=== PATIENT | female | born 1940 | race Caucasian/White ===

== ENCOUNTER 2018-01-20 11:07 | Inpatient (IN) | payer MEDICARE, OTHER ==
[2018-01-20] MEDS ORDERED: Ondansetron PF 4 MG/2 ML Vial ONE (12:08)
[2018-01-20 12:50] LABS: #Basophils 0.1 thou/uL (0.0-0.2); #Lymphocytes 0.7 thou/uL (1.20-3.40); #Monocytes 0.7 thou/uL (0.11-0.59); #Neutrophils 14.2 thou/uL (1.40-6.50); %Basophils 0.4 % (0.0-1.0); %Lymphocytes 4.6 % (21.0-51.0); %Monocytes 4.5 % (0.0-10.0); %Neutrophils 90.5 % (42.0-75.0); Hemoglobin 15.4 g/dL (12.0-16.0); Mean Corpuscular HGB CONC 33.4 g/dL (32.0-36.0); Mean Corpuscular Hemoglobin 29.8 pg (27.0-31.0); Mean Corpuscular Volume 89.2 fL (78.0-98.0); Mean Platelet Volume 8.9 fL (7.4-10.4); PLT Morphology Comment Appears Decreased; Platelet Count 117 thou/uL (130-400); RBC Distribution Width 13.1 % (11.5-14.5); RBC Morphology Normal; Red Blood Cell (RBC) Count 5.17 mill/uL (4.20-5.40); White Blood Cell (WBC) Count 15.7 thou/uL (4.8-10.8)
[2018-01-20 12:53] LABS: MDiff Complete? YES
[2018-01-20 12:55] LABS: Troponin I 0.093 ng/mL (< 0.028)
[2018-01-20 12:58] LABS: CKMB 113.5 ng/mL (0-6.6)
--- NOTE | 2018-01-20 13:04 | CT ---
CT BRAIN NONCONTRAST: HISTORY: A 77-year-old female status post head trauma from fall and dysarthria. FINDINGS: There is no midline shift or any other mass effect. There is no evidence of acute intracranial hemor rhage, large cortical infarct, obstructive hydrocephalus, or extraaxial fluid collection. The calvar ium is intact. There is diffuse parenchymal volume loss. There are low attenuation areas in the whi te matter. These are nonspecific, but in a patient of this age, they are probably chronic ischemic w debbie matter changes due to microvascular atherosclerosis. IMPRESSION: 1) No acute intracranial findings. 2) Involutional changes and chronic ischemic white matter changes. jn [] POS: [facility]
[2018-01-20 13:05] LABS: ALT (SGPT) 71 U/L (8-55); AST (SGOT) 160 U/L (5-34); Albumin 4.4 g/dL (3.4-4.8); Alkaline Phosphatase 62 U/L (40-150); Anion Gap 19 mmol/L (10-20); BUN (Urea Nitrogen) 29 mg/dL (9.8-20.1); Bilirubin, Total 2.1 mg/dL (0.2-1.2); CK (CPK) 5367 U/L (29-168); Calc. Creatinine Clearance 0 mL/min (70-130); Calcium 9.8 mg/dL (7.8-10.44); Carbon Dioxide 21 mmol/L (23-31); Chloride 100 mmol/L (98-107); Estimated GFR-MDRD 45; Globulin 2.9 g/dL (2.4-3.5); Glucose 117 mg/dL (83-110); Potassium 3.2 mmol/L (3.5-5.1); Protein, Total 7.3 g/dL (6.0-8.3); Sodium 137 mmol/L (136-145)
--- NOTE | 2018-01-20 13:16 | CT ---
CT CERVICAL SPINE NONCONTRAST: HISTORY: A 77-year-old female status post cervical trauma from fall. FINDINGS: There are no jumped or perched facets. There is no evidence of acute fracture. The vertebral body h eights are maintained. There is no prevertebral soft tissue swelling. IMPRESSION: No evidence of acute fracture or acute traumatic subluxation. kelby [] POS: [facility]
--- NOTE | 2018-01-20 13:18 | RAD ---
RADIOGRAPH RIGHT HUMERUS TWO VIEWS: 01/20/2018 12:53 p.m. HISTORY: A 77-year-old female with acute traumatic right arm pain from fall. FINDINGS: There is a comminuted fracture of the humeral head, also with a fracture component at the surgical ne ck of the humerus, where there is anterior angulation of the fracture apex. There is no dislocation of the glenohumeral joint. The humeral diaphysis is intact. IMPRESSION: Acute, traumatic, comminuted, displaced, right humeral head fracture. POS: [facility]
[2018-01-20 14:38] LABS: Bilirubin Negative (Negative); Blood, Urine Large (Negative); Glucose, Urine (Dipstick) Negative (Negative); Leukocyte Negative (Negative); Nitrite Negative (Negative); Protein, Urine (Dipstick) 100 mg/dL (Neg-Trace); Specific Gravity, Urine 1.025 (1.005-1.030); Urobilinogen 0.2 mg/dL (0.2-1.0); pH, Urine 6.5 (5.0-9.0)
[2018-01-20 14:39] LABS: Clarity Hazy (Clear)
[2018-01-20 14:54] LABS: Bacteria/HPF Rare-Few HPF (None Seen); Squamous Epithelial 0-3 HPF (0-3); WBC/HPF None Seen HPF (0-3)
[2018-01-20 16:59] VITALS: BMI 27.7
[2018-01-20] MEDS ORDERED: Ondansetron ODT 4 MG TAB SL PRN (17:48)
[2018-01-20] MEDS ORDERED: HYDROcodone/Acetaminophen 5/325 mg Tablet PO PRN ×2 (17:48)
[2018-01-20] MEDS ORDERED: Ondansetron PF 4 MG/2 ML Vial IVP PRN (17:48)
[2018-01-20] MEDS ORDERED: Sodium Chloride 0.9% 1,000 ML IV SCH (18:00)
[2018-01-20] MEDS ORDERED: Prevnar 13-Val Conj/PF 0.5 ML SYRINGE IM ONE (18:30)
[2018-01-20] MEDS ORDERED: Senokot S 8.6-50 MG TAB PO PRN (22:27)
[2018-01-20] MEDS ORDERED: Potassium Chloride 20 MEQ TAB PO SCH (22:30)
[2018-01-21] MEDS ORDERED: Potassium Chloride 20 MEQ TAB ONE (00:06)
[2018-01-21] MEDS: Sodium Chloride 0.9% 1,000 ML IV SCH ×5 (00:09→22:17)
--- NOTE | 2018-01-21 03:48 | HP ---
CHIEF COMPLAINT: Status post fall. HISTORY OF PRESENT ILLNESS: This is a 77-year-old female with a past medical history of rheumatoid a rthritis, presenting with status post mechanical fall. She was going to get her mails and the patien t lost her balance and she fell. The patient states that she did not fall and hit her head or she di d not lose any consciousness. She stated that she just fell. She just fell on her right side and sh e laid down and started yelling, but nobody could hear her. The patient states that she had to lay o n the ground for the whole night until the next morning when the neighbors heard her yell and they ca me and helped her. Per the patient, the neighbors helped into her house and called the patient's fam una. The patient was then brought our ED to be evaluated. The patient endorses right shoulder pain. Otherwise, the patient denies loss of consciousness, headaches, weakness, numbness, chest pain, pal pitations, abdominal pain. REVIEW OF SYSTEMS: Positive for right shoulder and upper arm pain, bruising of the right knee, poste rior left upper arm and left knee. Otherwise, as documented in the HPI. All other systems were revi ewed and are negative. PAST MEDICAL HISTORY: Rheumatoid arthritis. FAMILY HISTORY: Reviewed and noncontributory to this visit. PAST SURGICAL HISTORY: Right hip surgery. PSYCHIATRIC HISTORY: No psych history. SOCIAL HISTORY: The patient denies any illicit drug use and denies any smoking history. The patient drinks occasionally. ALLERGIES: The patient has no known drug allergies. CURRENT MEDICATION: The patient takes folic acid, Humira and methotrexate sodium. PHYSICAL EXAMINATION: VITAL SIGNS: The patient's blood pressure is 174/107, pulse of 102, respiratory rate of 18, O2 sat o f 94 on room air. GENERAL: The patient is lying in bed, has right arm in a sling. The patient is not in any acute dis tress. The patient is speaking in full sentences. HEENT: Normocephalic, atraumatic. Pupils are equal, round and reactive to light. Extraocular movem ents are intact. No scleral icterus. No conjunctival pallor noted. No trauma noted at the head. M ucous membranes are moist. There is a superficial abrasion on the bridge of the nose noted. NECK: No JVD. Trachea is midline. Supple. LUNGS: Clear to auscultation bilaterally. No wheezing, no rales, no rhonchi is appreciated. CARDIOVASCULAR: S1, S2. Regular rate and rhythm. No murmurs, no gallops, no rubs appreciated. ABDOMEN: Soft, nontender, nondistended, obese abdomen. PELVIS: No tenderness, bilateral iliac pressure over the pubis symphysis. There is no pelvic trauma . BACK: There is no tenderness on palpation of the entire spine. EXTREMITIES: The patient has ecchymosis and some contusion noted in the posterior aspect of the left upper arm and right arm has limited range of motion and is in a sling. Lower extremities, the patie nt has some ecchymosis noted at the anterior knees bilaterally. There is no edema noted. The patien t has good strength of the lower extremities bilaterally. NEUROLOGIC: Cranial nerves II-XII grossly intact. No neurologic deficits noted. SKIN: Kindly refer to the description that has been done at the nose, upper and lower extremities. EKG shows sinus tachycardia. IMAGIN. CT of the brain shows no acute intracranial findings. 2. Humerus x-ray shows acute traumatic, comminuted right humeral head fracture. 3. Cervical spine CT shows no evidence of acute fracture or acute traumatic subluxation. ASSESSMENT AND PLAN: 1. This is a 77-year-old female with a history of rheumatoid arthritis, being admitted for status po st mechanical fall. At this point, the patient has her right shoulder in a sling and the patient is lying in bed at this time. We will continue the patient on p.r.n. pain medications. We will continu e to monitor the patient very closely. 2. Rhabdomyolysis. The patient's CPK was elevated at 5357. We will continue the patient on IV hydr ation. I will monitor the patient closely. We will follow up on morning labs. 3. Acute kidney injury. We will continue the patient on IV hydration. We will follow up on morning labs. 4. Hypokalemia. We will replete the patient's potassium. 5. Leukocytosis, most likely reactive. We will follow up on morning labs.
[2018-01-21 04:57] LABS: Albumin 3.2 g/dL (3.4-4.8); Anion Gap 12 mmol/L (10-20); BUN (Urea Nitrogen) 31 mg/dL (9.8-20.1); BUN/Creatinine Ratio 29.52; Calc. Creatinine Clearance 51 mL/min (70-130); Calcium 8.5 mg/dL (7.8-10.44); Carbon Dioxide 20 mmol/L (23-31); Chloride 108 mmol/L (98-107); Estimated GFR-MDRD 51; Glucose 98 mg/dL (83-110); Phosphorus 3.8 mg/dL (2.3-4.7); Potassium 3.8 mmol/L (3.5-5.1); Sodium 136 mmol/L (136-145)
[2018-01-21 05:07] LABS: #Basophils 0.1 thou/uL (0.0-0.2); #Monocytes 0.7 thou/uL (0.11-0.59); #Neutrophils 10.5 thou/uL (1.40-6.50); %Basophils 0.4 % (0.0-1.0); %Eosinophils 0.3 % (0.0-10.0); %Lymphocytes 7.9 % (21.0-51.0); %Monocytes 5.6 % (0.0-10.0); %Neutrophils 85.7 % (42.0-75.0); Hemoglobin 12.4 g/dL (12.0-16.0); Mean Corpuscular HGB CONC 33.9 g/dL (32.0-36.0); Mean Corpuscular Volume 94.3 fL (78.0-98.0); Mean Platelet Volume 8.1 fL (7.4-10.4); Platelet Count 119 thou/uL (130-400); Red Blood Cell (RBC) Count 3.89 mill/uL (4.20-5.40); White Blood Cell (WBC) Count 12.3 thou/uL (4.8-10.8)
[2018-01-21] MEDS: Enoxaparin Sodium 40 MG/0.4 ML SYRINGE SC SCH (07:41)
[2018-01-21] MEDS: Famotidine 20 MG TAB PO SCH (07:41)
[2018-01-21] MEDS: Famotidine/PF 20 mg/2ml Vial SLOW IVP SCH (07:42)
[2018-01-21] MEDS ORDERED: Adalimumab 40 MG/0.8 ML SYRINGE SC SCH (09:00)
[2018-01-21] MEDS ORDERED: Methotrexate Sodium 2.5 MG TAB PO SCH (09:00)
[2018-01-21] MEDS ORDERED: Famotidine 20 MG TAB PO SCH (09:00)
[2018-01-21] MEDS ORDERED: Famotidine/PF 20 mg/2ml Vial SLOW IVP SCH (09:00)
[2018-01-21] MEDS ORDERED: Acetaminophen 500 MG TAB PO PRN (11:52)
[2018-01-21] MEDS: traMADol HCl 50 MG TAB PO PRN (12:23)
--- NOTE | 2018-01-21 12:24 | PDOC.PN ---
- Subjective Encounter Start Date: 01/21/18 Encounter Start Time: 12:10 Subjective: f/u for fall with prolonged exposure outside sustaining R humerus fx. -: Family reporting ? slurred speech. Family denying any new complaints. - Objective Resuscitation Status: Resuscitation Status FULL:Full Resuscitation MAR Reviewed: Yes Vital Signs & Weight: Vital Signs (12 hours) Temp Pulse Resp BP Pulse Ox 01/21/18 11:15 98.0 F 100 20 125/77 94 L 01/21/18 08:00 97 01/21/18 04:00 98 F 89 16 124/78 Weight Weight 156 lb 8.451 oz I&O: 01/20/18 01/21/18 01/22/18 06:59 06:59 06:59 Intake Total 2520 360 Balance 2520 360 Result Diagrams: 01/21/18 03:47 01/21/18 03:47 Additional Labs: Laboratory Tests 01/20/18 01/20/18 01/20/18 12:20 12:20 12:20 WBC 15.7 H Potassium 3.2 L Creatinine 1.17 H AST 160 H ALT 71 H Creatine Kinase 5367 H Troponin I 0.093 H Radiology Reviewed by me: Yes (CT brain - negative) Phys Exam - Physical Examination Constitutional: NAD alert, talkative HEENT: PERRLA, sclera anicteric, oral pharynx no lesions Neck: no nodes, no JVD, supple, full ROM Respiratory: no wheezing, no rales, no rhonchi, clear to auscultation bilateral S1, S2 Cardiovascular: RRR, no significant murmur, no rub, gallop Gastrointestinal: soft, non-tender, no distention, positive bowel sounds LUE with ecchymosis, + TTP of R humerus Musculoskeletal: pulses present Neurological: normal sensation, moves all 4 limbs Psychiatric: A&O x 3 Skin: normal turgor, cap refill <2 seconds Dx/Plan (1) Comminuted right humeral fracture Code(s): S42.351A - DISPLACED COMMINUTED FX SHAFT OF HUMERUS, RIGHT ARM, INIT Status: Acute Comment: Consult Ortho service, Arm sling, pain control, PT for mobilization (2) Traumatic rhabdomyolysis Code(s): T79.6XXA - TRAUMATIC ISCHEMIA OF MUSCLE, INITIAL ENCOUNTER Status: Acute Comment: Secondary to fall and prolonged environmental exposure, continue to encourage increased free-H2O, repeat CPK in am (3) SAMANTA (acute kidney injury) Code(s): N17.9 - ACUTE KIDNEY FAILURE, UNSPECIFIED Status: Acute Comment: Improved, IVF's, avoid nephrotoxic meds and limit contrast exposure (4) Transaminitis Code(s): R74.0 - NONSPEC ELEV OF LEVELS OF TRANSAMNS & LACTIC ACID DEHYDRGNSE Status: Acute Comment: Mild, serial monitoring (5) Dysarthria Code(s): R47.1 - DYSARTHRIA AND ANARTHRIA Status: Acute Comment: ? time course, check MRI brain and carotid doppler study - Plan plan discussed w/ family, PT/OT, social services manager, out of bed/ambulate, DVT proph w/SCDs Stable overall -: Continue IVF's -: MRI brain and Carotid doppler -: PT for mobilization -: AM lab: CMP, CBC, CPK * .
--- NOTE | 2018-01-21 16:00 | ULT ---
CAROTID ULTRASOUND: 01/21/18 HISTORY: Syncope and fall. COMPARISON: None. TECHNIQUE: Constantino scale, color flow, doppler imaging with spectral waveform analysis performed in the carotid vert ebral arteries. FINDINGS: RIGHT CAROTID: No significant atherosclerotic disease. Peak systolic velocity of the common carotid is 141.3 cm/s. P eak systolic velocity of the internal carotid artery is 74.1 cm/s. Systolic ICA to CCA ratio is 0.52. LEFT CAROTID: No significant atherosclerotic disease. Peak systolic velocity of the common carotid is 56.3 cm/s. Pe ak systolic velocity of the internal carotid artery is 103.4 cm/s. Systolic ICA to CCA ratio is 0.66. Antegrade flow in both vertebral arteries. IMPRESSION: No sonographic evidence of hemodynamically significant stenosis. POS: [facility]
--- NOTE | 2018-01-21 19:07 | MRI ---
MRI BRAIN WITH AND WITHOUT CONTRAST: 01/21/18 INDICATION: History of fall. Dysarthria. FINDINGS: There is severe ischemic disease of the cerebral white matter and in the brain stem. Multifocal punct ate susceptibility foci of the brain parenchyma are present. Marked distortion of DWI imaging limits evaluation, although there are multifocal punctate areas of restricted diffusion. No pathologic intra -axial enhancement visualized. Chronic lacunar infarctions of each cerebellar hemisphere are present. There is mild global atrophy. The imaged skull base flow voids are patent. Mild left mastoid fluid i s present. IMPRESSION: Severe microvascular ischemic disease. There are superimposed multifocal punctate susceptibility foci as well as punctate areas of restricted diffusion to indicate small areas of multifocal recent ische adama. These findings may relate to different stages of microvascular ischemic disease and likely a sup erimposed amyloid angiopathy. There is no mass producing, pathologic intra-axial enhancement. POS: [facility]
[2018-01-22] MEDS: Sodium Chloride 0.9% 1,000 ML IV SCH ×3 (05:01→22:30)
[2018-01-22 06:39] LABS: ALT (SGPT) 53 U/L (8-55); AST (SGOT) 102 U/L (5-34); Albumin 2.9 g/dL (3.4-4.8); Alkaline Phosphatase 46 U/L (40-150); Anion Gap 11 mmol/L (10-20); BUN (Urea Nitrogen) 16 mg/dL (9.8-20.1); Bilirubin, Total 0.7 mg/dL (0.2-1.2); CK (CPK) 995 U/L (29-168); Calc. Creatinine Clearance 87 mL/min (70-130); Calcium 8.3 mg/dL (7.8-10.44); Carbon Dioxide 18 mmol/L (23-31); Chloride 115 mmol/L (98-107); Estimated GFR-MDRD Greater than 90; Globulin 2.4 g/dL (2.4-3.5); Glucose 89 mg/dL (83-110); Potassium 3.6 mmol/L (3.5-5.1); Protein, Total 5.3 g/dL (6.0-8.3); Sodium 140 mmol/L (136-145)
[2018-01-22 06:59] LABS: Band 2 % (5-11); Hemoglobin 12.2 g/dL (12.0-16.0); Lymphocytes 10 % (21-51); MDiff Complete? YES; Mean Corpuscular HGB CONC 32.5 g/dL (32.0-36.0); Mean Corpuscular Hemoglobin 31.8 pg (27.0-31.0); Mean Corpuscular Volume 97.8 fL (78.0-98.0); Mean Platelet Volume 7.9 fL (7.4-10.4); Monocytes 6 % (0-10); Neutrophil 82 % (42-75); PLT Morphology Comment Appears Decreased; Platelet Count 125 thou/uL (130-400); RBC Distribution Width 14.1 % (11.5-14.5); RBC Morphology Normal; Red Blood Cell (RBC) Count 3.85 mill/uL (4.20-5.40); White Blood Cell (WBC) Count 5.8 thou/uL (4.8-10.8)
[2018-01-22] MEDS ORDERED: Enoxaparin Sodium 40 MG/0.4 ML SYRINGE ONE (07:58)
[2018-01-22] MEDS: traMADol HCl 50 MG TAB PO PRN ×3 (08:38→20:12)
[2018-01-22] MEDS: Famotidine 20 MG TAB PO SCH (08:39)
[2018-01-22] MEDS: Enoxaparin Sodium 40 MG/0.4 ML SYRINGE SC SCH (08:39)
[2018-01-22] MEDS: Famotidine/PF 20 mg/2ml Vial SLOW IVP SCH (08:40)
--- NOTE | 2018-01-22 14:04 | PDOC.PN ---
- Subjective Encounter Start Date: 01/22/18 Encounter Start Time: 10:20 Pt seen for followup re: ischemic CVA. Denies chest pain, shortness of breath, fevers or chills. - Objective Resuscitation Status: Resuscitation Status FULL:Full Resuscitation MAR Reviewed: Yes Vital Signs & Weight: Vital Signs (12 hours) Temp Pulse Resp BP Pulse Ox 01/22/18 08:00 98.5 F 89 16 162/85 H 95 Weight Weight 156 lb 8.451 oz I&O: 01/21/18 01/22/18 01/23/18 06:59 06:59 06:59 Intake Total 2520 2840 Output Total 2100 Balance 2520 740 Result Diagrams: 01/22/18 06:10 01/22/18 06:10 Additional Labs: labs reviewed by me Phys Exam - Physical Examination Constitutional: NAD HEENT: moist MMs, sclera anicteric, oral pharynx no lesions, 2+ tonsils Neck: no nodes, no JVD, supple, full ROM Respiratory: no wheezing, no rales, no rhonchi, clear to auscultation bilateral Cardiovascular: RRR, no rub S1, S2 Gastrointestinal: soft, non-tender, no distention, positive bowel sounds right shoulder sling Neurological: moves all 4 limbs Psychiatric: normal affect, A&O x 3 Dx/Plan (1) Ischemic cerebrovascular accident (CVA) Code(s): I63.9 - CEREBRAL INFARCTION, UNSPECIFIED Status: Acute (2) SAMANTA (acute kidney injury) Code(s): N17.9 - ACUTE KIDNEY FAILURE, UNSPECIFIED Status: Acute Comment: Improved, IVF's, avoid nephrotoxic meds and limit contrast exposure (3) Comminuted right humeral fracture Code(s): S42.351A - DISPLACED COMMINUTED FX SHAFT OF HUMERUS, RIGHT ARM, INIT Status: Acute Comment: Arm sling, pain control, PT for mobilization (4) Traumatic rhabdomyolysis Code(s): T79.6XXA - TRAUMATIC ISCHEMIA OF MUSCLE, INITIAL ENCOUNTER Status: Acute Comment: Improving, repeat CPK in am - Plan * . Review of Systems - Review of Systems Constitutional: negative: fever, chills, sweats, weakness, malaise Respiratory: Hemoptysis. negative: Cough, Shortness of Breath, SOB with Excertion, Pleuritic Pain, Wheezing Cardiovascular: negative: chest pain, palpitations, orthopnea, paroxysmal nocturnal dyspnea, edema, light headedness Musculoskeletal: Shoulder Pain. negative: Neck Pain, Arm Pain, Back Pain, Hand Pain, Leg Pain, Foot Pain Skin: Bruising. negative: Rash, Lesions, Lauri - Medications/Allergies Allergies/Adverse Reactions: Allergies Allergy/AdvReac Type Severity Reaction Status Date / Time No Known Allergies Allergy Unverified 01/20/18 16:58 Medications: Current Medications Acetaminophen (Tylenol) 1,000 mg PO Q6H PRN PRN Reason: Moderate to Severe Pain (6-10) Adalimumab (Humira) 20 mg SC Q7D [facility] Last Admin: 01/21/18 10:20 Dose: Not Given Enoxaparin Sodium (Lovenox) 40 mg SC 0900 [facility] Last Admin: 01/22/18 08:39 Dose: 40 mg Famotidine (Pepcid) 20 mg PO QAM [facility] Last Admin: 01/22/18 08:39 Dose: 20 mg Sodium Chloride (Normal Saline 0.9%) 1,000 mls @ 150 mls/hr IV .Q6H40M [facility] Last Admin: 01/22/18 14:00 Dose: 1,000 mls Methotrexate Sodium (Methotrexate Sodium) 10 mg PO Q7D [facility] Last Admin: 01/21/18 11:07 Dose: 10 mg Senna/Docusate Sodium (Senokot S) 2 tab PO BID PRN PRN Reason: Constipation Sodium Chloride (Flush - Normal Saline) 10 ml IVF Q12HR PRN PRN Reason: Saline Flush Sodium Chloride (Flush - Normal Saline) 10 ml IVF PRN PRN PRN Reason: Saline Flush Tramadol HCl (Ultram) 50 mg PO Q6H PRN PRN Reason: Moderate Pain (4-6) Last Admin: 01/22/18 13:57 Dose: 50 mg
--- NOTE | 2018-01-22 14:13 | PRG ---
DATE OF SERVICE: 01/22/2018 CHIEF COMPLAINT: Right proximal humerus fracture. HISTORY OF PRESENT ILLNESS: Ms. Pena is a pleasant 77-year-old female, who was found down after a fall exposure outside, history of RA, patient has rhabdo , is currently being treated for her deconditioning. The patient is resting comfortably in bed in a sling. Her pain is controlled. She has ambulated with physical therapy. PHYSICAL EXAMINATION: VITAL SIGNS: The patient's vitals 98.5, 89, 16, 95, 162/85. GENERAL: The patient is in general alert and oriented female in no acute distress. EXTREMITIES: Right upper extremity, brisk cap refill, palpable. She is able to flex and extend her fingers, wrist, and hand. Motor intact. IMPRESSION: The patient has a right proximal humerus fracture with probably intraarticular extension. ASSESSMENT AND PLAN: The patient will remain in a sling for 2 weeks, perform elbow, wrist, and hand motion. She will likely need either Home Health or since she lives alone to go home with family versus to skilled rehab versus SNF , so the patient is continued through care. I will see her back in 2 weeks and re-x-ray her. I discussed that she potentially could still undergo a reversal arthroplasty in the future as a delayed procedure. We will allow her to get over this acute medical event and we will discuss this in the future. ROGER
[2018-01-22] MEDS ORDERED: Aspirin 325 mg Enteric Coated Tablet PO SCH (16:45)
[2018-01-22] MEDS: Atorvastatin Calcium 20 MG TAB PO SCH (20:13)
[2018-01-22] MEDS ORDERED: Prevnar 13-Val Conj/PF 0.5 ML SYRINGE IM ONE (21:00)
[2018-01-23] MEDS: traMADol HCl 50 MG TAB PO PRN ×2 (04:17→16:44)
[2018-01-23 05:38] LABS: ALT (SGPT) 52 U/L (8-55); AST (SGOT) 81 U/L (5-34); Albumin 2.9 g/dL (3.4-4.8); Alkaline Phosphatase 43 U/L (40-150); Anion Gap 10 mmol/L (10-20); BUN (Urea Nitrogen) 9 mg/dL (9.8-20.1); CK (CPK) 583 U/L (29-168); Calc. Creatinine Clearance 98 mL/min (70-130); Carbon Dioxide 23 mmol/L (23-31); Cardiac Risk 4.6 (Less than 4.5); Chloride 109 mmol/L (98-107); Cholesterol 146 mg/dl (< 200 Desired); Estimated GFR-MDRD Greater than 90; Globulin 2.2 g/dL (2.4-3.5); Glucose 95 mg/dL (83-110); HDL Cholesterol 32 mg/dL (>60 Neg Risk); LDL Cholesterol, Calculated 89 mg/dL; Protein, Total 5.1 g/dL (6.0-8.3); Sodium 139 mmol/L (136-145); Triglycerides 123 mg/dL (Less than 150)
[2018-01-23 05:39] LABS: #Eosinphils 0.1 thou/uL (0.0-0.7); #Lymphocytes 0.8 thou/uL (1.20-3.40); #Monocytes 0.2 thou/uL (0.11-0.59); #Neutrophils 4.4 thou/uL (1.40-6.50); %Basophils 0.5 % (0.0-1.0); %Eosinophils 2.2 % (0.0-10.0); %Lymphocytes 14.6 % (21.0-51.0); %Monocytes 3.8 % (0.0-10.0); %Neutrophils 78.9 % (42.0-75.0); Hemoglobin 11.7 g/dL (12.0-16.0); Mean Corpuscular HGB CONC 33.6 g/dL (32.0-36.0); Mean Corpuscular Hemoglobin 31.5 pg (27.0-31.0); Mean Platelet Volume 7.8 fL (7.4-10.4); Platelet Count 124 thou/uL (130-400); RBC Distribution Width 13.5 % (11.5-14.5); White Blood Cell (WBC) Count 5.5 thou/uL (4.8-10.8)
[2018-01-23 05:41] LABS: Potassium 2.9 mmol/L (3.5-5.1)
[2018-01-23] MEDS: Sodium Chloride 0.9% 1,000 ML IV SCH ×4 (06:00→23:12)
[2018-01-23] MEDS ORDERED: Potassium Chloride 10 MEQ in Premix Bag 1 BAG IVPB SCH (06:15)
[2018-01-23] MEDS: Potassium Chloride 10 MEQ in Premix Bag 1 BAG IVPB SCH ×3 (06:26→14:02)
[2018-01-23] MEDS ORDERED: hydrALAZINE 20 MG/ML VIAL SLOW IVP SCH (08:45)
[2018-01-23] MEDS: Famotidine 20 MG TAB PO SCH (10:30)
[2018-01-23] MEDS: Aspirin 325 mg Enteric Coated Tablet PO SCH (10:30)
--- NOTE | 2018-01-23 12:16 | PDOC.PN ---
- Subjective Encounter Start Date: 01/23/18 Encounter Start Time: 07:00 Pt seen for followup re: ischemic CVA. Denies chest pain, shortness of breath, fevers or chills. - Objective Resuscitation Status: Resuscitation Status FULL:Full Resuscitation MAR Reviewed: Yes Vital Signs & Weight: Vital Signs (12 hours) Temp Pulse Resp BP BP Pulse Ox 01/23/18 11:48 98.4 F 85 18 179/108 H 95 01/23/18 10:23 87 205/126 H 01/23/18 08:55 96 01/23/18 07:55 98.1 F 87 16 192/122 H 96 01/23/18 03:25 98.3 F 84 12 169/101 H 97 01/23/18 00:17 98.0 F 92 12 165/113 H 92 L Weight Weight 156 lb 8.451 oz I&O: 01/22/18 01/23/18 01/24/18 06:59 06:59 06:59 Intake Total 2840 850 1050 Output Total 2100 2350 1000 Balance 740 -1500 50 Result Diagrams: 01/23/18 04:58 01/23/18 04:58 EKG Reviewed by me: Yes (Tele: NSR) Phys Exam - Physical Examination Constitutional: NAD HEENT: moist MMs Neck: supple Respiratory: clear to auscultation bilateral Cardiovascular: RRR Gastrointestinal: soft Neurological: moves all 4 limbs Psychiatric: normal affect Dx/Plan (1) Ischemic cerebrovascular accident (CVA) Code(s): I63.9 - CEREBRAL INFARCTION, UNSPECIFIED Status: Acute Comment: continue aspirin, statin (2) Hypokalemia Code(s): E87.6 - HYPOKALEMIA Status: Acute Comment: replace potassium, recheck (3) Comminuted right humeral fracture Code(s): S42.351A - DISPLACED COMMINUTED FX SHAFT OF HUMERUS, RIGHT ARM, INIT Status: Acute Comment: Arm sling, pain control, PT for mobilization; seen by ortho (4) Traumatic rhabdomyolysis Code(s): T79.6XXA - TRAUMATIC ISCHEMIA OF MUSCLE, INITIAL ENCOUNTER Status: Acute Comment: Improving (5) SAMANTA (acute kidney injury) Code(s): N17.9 - ACUTE KIDNEY FAILURE, UNSPECIFIED Status: Resolved - Plan * . Review of Systems - Review of Systems Respiratory: negative: Cough, Shortness of Breath, SOB with Excertion, Pleuritic Pain, Wheezing Cardiovascular: negative: chest pain, palpitations, orthopnea, paroxysmal nocturnal dyspnea, edema, light headedness - Medications/Allergies Allergies/Adverse Reactions: Allergies Allergy/AdvReac Type Severity Reaction Status Date / Time No Known Allergies Allergy Unverified 01/20/18 16:58 Medications: Current Medications Acetaminophen (Tylenol) 1,000 mg PO Q6H PRN PRN Reason: Moderate to Severe Pain (6-10) Last Admin: 01/23/18 10:29 Dose: 1,000 mg Adalimumab (Humira) 20 mg SC Q7D [facility] Last Admin: 01/21/18 10:20 Dose: Not Given Aspirin (Ecotrin) 325 mg PO DAILY [facility] Last Admin: 01/23/18 10:30 Dose: 325 mg Atorvastatin Calcium (Lipitor) 20 mg PO HS [facility] Last Admin: 01/22/18 20:13 Dose: 20 mg Enoxaparin Sodium (Lovenox) 40 mg SC 0900 [facility] Last Admin: 01/22/18 08:39 Dose: 40 mg Famotidine (Pepcid) 20 mg PO QAM [facility] Last Admin: 01/23/18 10:30 Dose: 20 mg Sodium Chloride (Normal Saline 0.9%) 1,000 mls @ 150 mls/hr IV .Q6H40M [facility] Last Admin: 01/23/18 06:00 Dose: Not Given Methotrexate Sodium (Methotrexate Sodium) 10 mg PO Q7D [facility] Last Admin: 01/21/18 11:07 Dose: 10 mg Senna/Docusate Sodium (Senokot S) 2 tab PO BID PRN PRN Reason: Constipation Sodium Chloride (Flush - Normal Saline) 10 ml IVF Q12HR PRN PRN Reason: Saline Flush Last Admin: 01/23/18 10:29 Dose: 10 ml Sodium Chloride (Flush - Normal Saline) 10 ml IVF PRN PRN PRN Reason: Saline Flush Tramadol HCl (Ultram) 50 mg PO Q6H PRN PRN Reason: Moderate Pain (4-6) Last Admin: 01/23/18 04:17 Dose: 50 mg
[2018-01-23] MEDS: Enoxaparin Sodium 40 MG/0.4 ML SYRINGE SC SCH (12:36)
--- NOTE | 2018-01-23 17:45 | CON ---
DATE OF CONSULTATION: 01/23/2018 CHIEF COMPLAINT: Recent fall. HISTORY OF PRESENT ILLNESS: Patient is a 77-year-old lady with a history of rheumatoid arthritis. S he was admitted to the hospital following a fall and she has significant bruising throughout her body and is in a cuff in the right arm at the moment. She has a brace in the right arm and she has been following the right humeral fracture. She has elevated CPK to 5357 and it is my understanding Neurol ogy consultation was requested to rule out any possible CVA or other causes. Patient reports right s houlder pain. She and her son gave her medical history. The patient was walking to get her mail and there is a definite slope in the driveway and as she approached mail area, she carrying a handful of mail and newspapers and could not stop her feet, could not slow down her gait and [facility] and normally she is very independent. She used to go to the gym and workout as well. Son rep orts she has had some slowness and there has been a definite change in her gait and her arms more in front of her rather than swinging while walking and she tends to favor one side and she has been taki ng slower steps. She has preexisting history of rheumatoid arthritis. No history of tremor. She sl eeps well. She has no drooling or change in sense of smell, no constipation. The patient has had so me dehydration as well. PREVIOUS MEDICAL HISTORY: Positive for rheumatoid arthritis. PAST SURGICAL HISTORY: Right hip surgery about 12 years ago with a hip replacement and it was not re lated to any fractures according to the patient. SOCIAL HISTORY: The patient raised her four kids traveled as much as she could with her who was first in the and then was a business end finder twisting department. Patient lives alone by herself and it is ve ry independent, does not smoke or drink alcohol. ALLERGIES: No known drug allergies. FAMILY HISTORY: Her father at 94. Mother at 84 following chronic asthma and she has 4 chi ldren, 3 sons and one daughter, age is 57, 55, 45 and 44. She has longevity on her father's side and she stated that they all were in the farming industry. CURRENT MEDICATIONS: She takes folic acid, Humira and methotrexate. REVIEW OF SYSTEMS: MUSCULOSKELETAL: Positive for multiple injuries following a recent fall along wi th humeral fracture on the right hand side. CARDIAC: Negative for chest pain or palpitations. PULM ONARY: Negative for shortness of breath or cough. RHEUMATOLOGIC: Positive for rheumatoid arthritis . NEUROLOGIC: Positive for some gait difficulties and disturbance of gait. GASTROINTESTINAL: Nega tive for any diarrhea or vomiting or nausea. HEMATOLOGICAL: Negative for anemia or bleeding diathes es. DERMATOLOGICAL: Normal. Negative for any rash except for current bruising. LABORATORY DATA AND IMAGING DATA: White count 5.5, hemoglobin 11.7, hematocrit 34.7, platelets are 1 24. Chemistry: Sodium 139, potassium 2.9, chloride 109, bicarbonate 23, BUN 9, creatinine 0.55, peter irubin 1, AST 81, ALT 52, alkaline phosphatase 43, CPK now is 583 on admission, it was 53.7, CK-MB wa s 13.5. Troponin 0.093 on admission. Her lipid profile was within normal limits. Her examination s hows on MRI scan, she has severe microvascular ischemic disease with superimposed multifocal punctate susceptibility foci as well as punctate areas of recent diffusion to indicate small areas of multifo deanna recent ischemia. These may relate to different stages of microvascular ischemic disease, likely superimposed amyloid in angiopathy and her carotid Doppler study shows no hemodynamically significanc e stenoses and echocardiogram is pending. PHYSICAL EXAMINATION: VITAL SIGNS: Blood pressure is 192/122, pulse is 87, temperature 98.1 and respiratory rate 16. GENERAL APPEARANCE: Patient has bruises all over her left arm, right knee and also on the right leg along with some edema of the left arm and right knee valgus deformity. CHEST: Clear vesicular breathing. CARDIOVASCULAR: S1, S2 heard, no murmurs. ABDOMEN: Soft, nontender, no organomegaly noted. NEUROLOGIC: Higher intellectual function: She missed the date, but knew the year and month and appr opriate in conversation. Cranial nerves, II-XII. She had normal pupillary size 3-4 mm, reactive to light and accommodation. Normal facial sensation. Normal hearing bilaterally. Tongue midline. Nor mal palate elevation. She had mild asymmetry of the right side of the face with slightly flattened n asolabial fold. Motor examination: Bulk normal, tone normal. 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 Rest of the right arm could not be examined properly due to pain. Rest of the iram r examination was grossly intact. Strength exam included examination of following muscle groups incl uding deltoid, biceps, triceps, wrist extension/flexion, finger extension and flexion, and iliopsoas, hamstrings, quadriceps, ankle dorsiflexion, plantar flexion bilaterally. The patient had diminished deep tendon reflexes throughout right upper extremity. Tendon reflex exam is limited. SENSORY: No rmal to touch and proprioception. CEREBELLAR: Normal [id number] on the left hand side and heel- to-mary was difficult to perform due to her discomfort. IMPRESSION: Patient is a 77-year-old lady with recent problems with her gait and she has history of rheumatoid arthritis. Reports she had slightly decreased arm swing and slower steps and favor one si de and her physical examination shows multiple areas of bruising valgus deformity of the right knee a nd mild facial asymmetry on the right side, some cognitive difficulty with remembering the date. Cli nical findings and her MRI findings are suggestive of microvascular ischemic disease rather extensive in her case could be amyloid angiopathy, but this needs further workup. At this time, her neurologi deanna exam is relatively well preserved. RECOMMENDATIONS: I would suggest aspirin for stroke prophylaxis. She needs to see Dr. Carpenter as an outpatient for further workup of any underlying dementia and multi-vascular ischemic gait which is p robably causing her gait abnormality as well with the lower body akinetic form of Parkinsonism, which can be a reasonable diagnosis given her history and MRI findings. Now her primary issue is healing of the right humeral fracture, also keeping her on statin and aspirin for stroke prevention. Please call Neurology if you have any further questions.
[2018-01-23] MEDS: Labetalol HCl 100 MG/20 ML VIAL SLOW IVP PRN ×2 (21:09→23:19)
[2018-01-23] MEDS: Atorvastatin Calcium 20 MG TAB PO SCH (21:14)
[2018-01-23] MEDS: hydrALAZINE 20 MG/ML VIAL SLOW IVP PRN (21:54)
[2018-01-24] MEDS: hydrALAZINE 20 MG/ML VIAL SLOW IVP PRN ×2 (01:42→06:45)
[2018-01-24] MEDS: Labetalol HCl 100 MG/20 ML VIAL SLOW IVP PRN (04:41)
[2018-01-24 05:55] LABS: #Eosinphils 0.1 thou/uL (0.0-0.7); #Lymphocytes 0.6 thou/uL (1.20-3.40); #Monocytes 0.2 thou/uL (0.11-0.59); #Neutrophils 4.2 thou/uL (1.40-6.50); %Eosinophils 1.7 % (0.0-10.0); %Lymphocytes 11.5 % (21.0-51.0); %Monocytes 3.5 % (0.0-10.0); %Neutrophils 83.4 % (42.0-75.0); Hemoglobin 12.5 g/dL (12.0-16.0); Mean Corpuscular HGB CONC 33.1 g/dL (32.0-36.0); Mean Corpuscular Volume 93.5 fL (78.0-98.0); Mean Platelet Volume 7.6 fL (7.4-10.4); Platelet Count 157 thou/uL (130-400); RBC Distribution Width 13.6 % (11.5-14.5); Red Blood Cell (RBC) Count 4.02 mill/uL (4.20-5.40)
[2018-01-24 06:11] LABS: ALT (SGPT) 56 U/L (8-55); AST (SGOT) 74 U/L (5-34); Albumin 3.1 g/dL (3.4-4.8); Alkaline Phosphatase 47 U/L (40-150); Anion Gap 11 mmol/L (10-20); BUN (Urea Nitrogen) 7 mg/dL (9.8-20.1); Bilirubin, Total 1.3 mg/dL (0.2-1.2); CK (CPK) 371 U/L (29-168); Calc. Creatinine Clearance 98 mL/min (70-130); Calcium 8.4 mg/dL (7.8-10.44); Carbon Dioxide 23 mmol/L (23-31); Chloride 108 mmol/L (98-107); Estimated GFR-MDRD Greater than 90; Globulin 2.5 g/dL (2.4-3.5); Glucose 119 mg/dL (83-110); Protein, Total 5.6 g/dL (6.0-8.3); Sodium 139 mmol/L (136-145)
[2018-01-24 06:14] LABS: Potassium 2.8 mmol/L (3.5-5.1)
[2018-01-24] MEDS: Sodium Chloride 0.9% 1,000 ML IV SCH ×2 (08:29→13:00)
[2018-01-24] MEDS: Aspirin 325 mg Enteric Coated Tablet PO SCH (08:34)
[2018-01-24] MEDS: Famotidine 20 MG TAB PO SCH (08:34)
[2018-01-24] MEDS: traMADol HCl 50 MG TAB PO PRN ×2 (08:36→16:07)
[2018-01-24] MEDS: Enoxaparin Sodium 40 MG/0.4 ML SYRINGE SC SCH (08:51)
--- NOTE | 2018-01-24 10:56 | CON ---
DATE OF CONSULTATION: 01/21/2018 DATE OF ADMISSION: 01/20/2018 CONSULTING PHYSICIAN: Dr. Soto/Dr. Alejandre. HISTORY OF PRESENT ILLNESS: Mrs. Pena is a pleasant 77-year-old female who lives alone with past medical history of rheumatoid arthritis, she presented after a fall. The patient was found down for an undisclosed period of time. She was brought in and is currently admitted to [facility] for hypothermia , rhabdomyolysis, history of right shoulder pain. There was some confusion per the patient's family during the last 24 hours with hallucination. The patient is resting comfortably in bed and had no acute complaints. PAST MEDICAL HISTORY: Rheumatoid arthritis. PAST SURGICAL HISTORY: Right total hip arthroplasty. MEDICATIONS: She takes folic acid, Humira, methotrexate. ALLERGIES: No known drug allergies. SOCIAL HISTORY: Denies illicit drug use or smoking. She used to drink. She lives by herself in [place]. The patient's daughters are at bedside. PHYSICAL EXAMINATION: VITAL SIGNS: Temperature 98, pulse 100, respiratory rate 20, O2 sats 94%, blood pressure 125/77. GENERAL: Alert and oriented female to person, place, and time. MUSCULOSKELETAL: The patient's right upper extremity, she got bruising. No open wounds. She has got neurovascularly intact to the right upper extremity, brisk cap refill, no acute swelling. LABORATORY DATA: The patient's hemoglobin and hematocrit is 12 and 36, white count of 12. Her chemistry shows creatinine kinase of 5367, CK-MB of 113. The patient's creatinine was 1.17, which was corrected to 1.05 today. The patient underwent a carotid Doppler, which is pending read as well as a brain CT which showed no intracranial findings. No ischemic changes. IMAGING DATA: Radiograph of humerus shows a right proximal humerus fracture with what looks to be potentially intra-articular step off, it is technically still two part based off of the surgical neck fracture. IMPRESSION: 1. Right proximal humerus fracture. 2. Rhabdomyolysis. 3. Rheumatoid arthritis. 4. Environmental exposure ASSESSMENT AND PLAN: The patient will be followed by [facility] and discharged per their recommendations. I feel like the patient given that she is single, lives alone will likely need care going home, given her the lack of use or not on the hand as well as the significant exposure from being down for 14 hours. We placed in a sling. Begin elbow, wrist, and hand motion, no shoulder motion until follow up in 2 weeks. I discussed with the family that we will attempt to first treat this patient conservatively with nonoperative measures. If elbow or shoulder displaces or show any signs of dislocation and at that point, I will consider surgical management and I would likely perform an index procedure reversal shoulder arthroplasty given the small intraarticular split on the AP view. I discussed this with the family understand for our plan of courses of conservative management and conversion of reverse arthroplasty as needed. The patient and family understand this. I will see and follow up with them in the morning. ROGER
[2018-01-24] MEDS: Potassium Chloride 20 MEQ TAB PO SCH ×3 (11:38→18:04)
[2018-01-24 12:20] LABS: Potassium 3.2 mmol/L (3.5-5.1)
--- NOTE | 2018-01-24 13:47 | PDOC.PN ---
- Subjective Encounter Start Date: 01/24/18 Encounter Start Time: 07:20 Pt seen for followup re: ischemic cva. Reports feeling well. No fevers or chills. - Objective Resuscitation Status: Resuscitation Status FULL:Full Resuscitation MAR Reviewed: Yes Vital Signs & Weight: Vital Signs (12 hours) Temp Pulse Pulse Pulse Resp BP BP 01/24/18 11:50 97.6 F 92 16 01/24/18 09:14 86 94 158/109 H 01/24/18 07:36 97.7 F 86 16 01/24/18 07:30 01/24/18 06:45 82 209/84 H 01/24/18 04:41 91 201/88 H 01/24/18 04:00 99.0 F 91 16 BP BP Pulse Ox 01/24/18 11:50 163/105 H 97 01/24/18 09:14 139/106 H 01/24/18 07:36 143/91 H 95 01/24/18 07:30 95 01/24/18 06:45 01/24/18 04:41 01/24/18 04:00 205/87 H 97 Weight Weight 156 lb 8.451 oz I&O: 01/23/18 01/24/18 01/25/18 06:59 06:59 06:59 Intake Total 850 4471 600 Output Total 2350 1100 Balance -1500 3371 600 Result Diagrams: 01/24/18 05:06 01/24/18 11:53 EKG Reviewed by me: Yes (Tele: NSR) Phys Exam - Physical Examination Constitutional: NAD HEENT: moist MMs Neck: supple Respiratory: clear to auscultation bilateral Cardiovascular: RRR Gastrointestinal: soft Neurological: moves all 4 limbs Psychiatric: normal affect Dx/Plan (1) Ischemic cerebrovascular accident (CVA) Code(s): I63.9 - CEREBRAL INFARCTION, UNSPECIFIED Status: Acute Comment: on aspirin and statin (2) Hypokalemia Code(s): E87.6 - HYPOKALEMIA Status: Acute Comment: replace potassium (3) Comminuted right humeral fracture Code(s): S42.351A - DISPLACED COMMINUTED FX SHAFT OF HUMERUS, RIGHT ARM, INIT Status: Acute Comment: seen by ortho (4) Traumatic rhabdomyolysis Code(s): T79.6XXA - TRAUMATIC ISCHEMIA OF MUSCLE, INITIAL ENCOUNTER Status: Acute Comment: Improving (5) SAMANTA (acute kidney injury) Code(s): N17.9 - ACUTE KIDNEY FAILURE, UNSPECIFIED Status: Resolved - Plan * . Review of Systems - Review of Systems Cardiovascular: negative: chest pain, palpitations, orthopnea, paroxysmal nocturnal dyspnea, edema, light headedness Gastrointestinal: negative: Nausea, Vomiting, Abdominal Pain, Diarrhea, Constipation, Melena, Hematochezia - Medications/Allergies Allergies/Adverse Reactions: Allergies Allergy/AdvReac Type Severity Reaction Status Date / Time No Known Allergies Allergy Unverified 01/20/18 16:58 Medications: Current Medications Acetaminophen (Tylenol) 1,000 mg PO Q6H PRN PRN Reason: Moderate to Severe Pain (6-10) Last Admin: 01/23/18 10:29 Dose: 1,000 mg Adalimumab (Humira) 20 mg SC Q7D [facility] Last Admin: 01/21/18 10:20 Dose: Not Given Aspirin (Ecotrin) 325 mg PO DAILY [facility] Last Admin: 01/24/18 08:34 Dose: 325 mg Atorvastatin Calcium (Lipitor) 20 mg PO HS [facility] Last Admin: 01/23/18 21:14 Dose: 20 mg Enoxaparin Sodium (Lovenox) 40 mg SC 0900 [facility] Last Admin: 01/24/18 08:51 Dose: 40 mg Famotidine (Pepcid) 20 mg PO QAM [facility] Last Admin: 01/24/18 08:34 Dose: 20 mg Hydralazine HCl (Apresoline) 10 mg SLOW IVP Q4H PRN PRN Reason: SBP Greater Than 180 Last Admin: 01/24/18 06:45 Dose: 10 mg Labetalol HCl (Normodyne) 10 mg SLOW IVP Q4H PRN PRN Reason: SBP Greater Than 220 Last Admin: 01/24/18 04:41 Dose: 10 mg Methotrexate Sodium (Methotrexate Sodium) 10 mg PO Q7D [facility] Last Admin: 01/21/18 11:07 Dose: 10 mg Potassium Chloride (K-Dur) 40 meq PO Q4H [facility] Stop: 01/24/18 18:31 Last Admin: 01/24/18 11:38 Dose: 40 meq Senna/Docusate Sodium (Senokot S) 2 tab PO BID PRN PRN Reason: Constipation Sodium Chloride (Flush - Normal Saline) 10 ml IVF Q12HR PRN PRN Reason: Saline Flush Last Admin: 01/23/18 10:29 Dose: 10 ml Sodium Chloride (Flush - Normal Saline) 10 ml IVF PRN PRN PRN Reason: Saline Flush Tramadol HCl (Ultram) 50 mg PO Q6H PRN PRN Reason: Moderate Pain (4-6) Last Admin: 01/24/18 08:36 Dose: 50 mg
[2018-01-24] MEDS: Atorvastatin Calcium 20 MG TAB PO SCH (21:27)
[2018-01-25 06:17] LABS: #Eosinphils 0.2 thou/uL (0.0-0.7); #Lymphocytes 0.8 thou/uL (1.20-3.40); #Monocytes 0.4 thou/uL (0.11-0.59); #Neutrophils 2.8 thou/uL (1.40-6.50); %Basophils 0.3 % (0.0-1.0); %Eosinophils 4.3 % (0.0-10.0); %Lymphocytes 18.4 % (21.0-51.0); %Monocytes 9.1 % (0.0-10.0); Hemoglobin 12.4 g/dL (12.0-16.0); Mean Corpuscular Hemoglobin 31.5 pg (27.0-31.0); Mean Corpuscular Volume 95.5 fL (78.0-98.0); Mean Platelet Volume 7.5 fL (7.4-10.4); Platelet Count 168 thou/uL (130-400); RBC Distribution Width 13.7 % (11.5-14.5); Red Blood Cell (RBC) Count 3.95 mill/uL (4.20-5.40); White Blood Cell (WBC) Count 4.2 thou/uL (4.8-10.8)
[2018-01-25 06:29] LABS: ALT (SGPT) 56 U/L (8-55); AST (SGOT) 62 U/L (5-34); Albumin 3.1 g/dL (3.4-4.8); Alkaline Phosphatase 51 U/L (40-150); Anion Gap 10 mmol/L (10-20); BUN (Urea Nitrogen) 13 mg/dL (9.8-20.1); Bilirubin, Total 1.1 mg/dL (0.2-1.2); CK (CPK) 159 U/L (29-168); Calc. Creatinine Clearance 91 mL/min (70-130); Calcium 8.9 mg/dL (7.8-10.44); Carbon Dioxide 24 mmol/L (23-31); Chloride 110 mmol/L (98-107); Estimated GFR-MDRD Greater than 90; Globulin 2.4 g/dL (2.4-3.5); Glucose 100 mg/dL (83-110); Potassium 4.1 mmol/L (3.5-5.1); Protein, Total 5.5 g/dL (6.0-8.3); Sodium 140 mmol/L (136-145)
[2018-01-25] MEDS: Enoxaparin Sodium 40 MG/0.4 ML SYRINGE SC SCH (09:37)
[2018-01-25] MEDS: Famotidine 20 MG TAB PO SCH (09:38)
[2018-01-25] MEDS: Aspirin 325 mg Enteric Coated Tablet PO SCH (09:38)
[2018-01-25] MEDS: traMADol HCl 50 MG TAB PO PRN (12:48)
[2018-01-25] MEDS ORDERED: Amlodipine 5 MG TAB PO SCH (15:30)
[2018-01-25 15:54] VITALS: TEMP 98.7
[2018-01-25 15:59] VITALS: BP 178/99
--- NOTE | 2018-01-25 23:37 | DIS ---
PRIMARY CARE PHYSICIAN: Gavi Gamble M.D. DATE OF ADMISSION: 01/20/2018 DATE OF DISCHARGE: 01/25/2018 DISCHARGE DIAGNOSES: 1. Multifocal arterial ischemic stroke. 2. Rhabdomyolysis. 3. Fall. 4. Right humeral fracture. 5. Hypertension. 6. Hypokalemia. 7. Acute kidney injury. 8. Thrombocytopenia. CONSULTATIONS DURING THIS HOSPITALIZATION: Orthopedics, Dr. Saad Cuellar and neurology, Dr. Ronak Bowling. DISCHARGE MEDICATIONS: Amlodipine 5 mg daily, aspirin 325 mg daily, atorvastatin 20 mg at bedtime, S enokot-S 2 tablets two times a day as needed, tramadol 50 mg every 6 hours as needed, methotrexate 10 mg orally every week, Humira 20 mg subcutaneously every week. HOSPITAL COURSE: Ms. Pena is a pleasant 77-year-old lady who was admitted to [facility] on 01/20/2018, following a fall. Please refer to Dr. Soto's history and physical note dated 01/21/2018 for further details. She was seen by Orthopedics Service for right humeral fracture . She had the humerus placed in a sling. She will follow up with Orthopedic Service as outpatient. MRI of the brain on 01/21/2018 showed severe microvascular ischemic disease, with superimposed multif ocal punctate susceptibility foci as well as punctate areas of restricted diffusion to indicate small areas of multifocal recent ischemia. She was started on aspirin and statin. Neurology service was consulted. She also had a 2D echocardiogram, which showed left ventricular ejection fraction of 55% to 60% and E/A flow reversal suggestive of diastolic dysfunction. She had normal right ventricular s ize and function, mild mitral annular calcification, and structurally normal aortic valve. She also had carotid Dopplers, which did not show any hemodynamically significant stenosis. Neurology service recommends follow up with Dr. Mendoza Carpenter as outpatient for further workup of any underlying rigoberto ia and multi vascular ischemia, which is probably causing her gait abnormality. There is also concer n with lower body akinetic form of Parkinsonism. She has been evaluated by therapy services. She has been accepted for inpatient rehabilitation at [facility]. She is being discharged to inpatient rehabilitation. On the day of discharge, Ms. Pena has white count of 4200, hemoglobin 12.4, platelet count 168,000. Sodium 140, potassium 4.1, and creatinine 0.59. AST is 62, decreased from 160 at the time of admiss ion. ALT is 56, decreased from 71 at the time of admission, creatine kinase is normal at 159, decrea sed from 5367 at the time of admission. She also had acute renal insufficiency at the time of admission, which resolved by the time of discha rge. She also had thrombocytopenia during this hospitalization, with platelet count of 117,000. It normalized to 168,000 on the day of discharge. Many thanks for allowing me to participate in your patient's care. Please feel free to contact me wi th any questions or concerns. DISCHARGE DESTINATION: [facility]. TOTAL AMOUNT OF TIME SPENT COORDINATING THIS DISCHARGE: 32 minutes.
[2018-01-26] MEDS ORDERED: Amlodipine 5 MG TAB PO SCH (09:00)
== END 2018-01-25 18:30 | DRG 562 ==
LOC: SCSER 11:07 → T4-B 14:12 → 2SE 01-22 15:31
PROVIDERS: ADMIT Internal Medicine Infectious Disease; ATTEND Internal Medicine Infectious Disease
DX: S42.201A Unspecified fracture of upper end of right humerus, initial encounter for closed fracture (principal); I63.9 Cerebral infarction, unspecified; N17.9 Acute kidney failure, unspecified; W18.30XA Fall on same level, unspecified, initial encounter; Y92.009 Unspecified place in unspecified non-institutional (private) residence as the place of occurrence of the external cause; M06.9 Rheumatoid arthritis, unspecified; E87.6 Hypokalemia; D72.829 Elevated white blood cell count, unspecified; T79.6XXA Traumatic ischemia of muscle, initial encounter; R74.0 Nonspecific elevation of levels of transaminase and lactic acid dehydrogenase [LDH]; R47.1 Dysarthria and anarthria; E86.0 Dehydration; Z96.641 Presence of right artificial hip joint; M21.061 Valgus deformity, not elsewhere classified, right knee; I10 Essential (primary) hypertension
CPT/HCPCS: 36415; 51702; 70450; 70553; 72125; 80053; 80061; 80069; 81003; 81015; 82550; 82553; 84484; 85007; 85025; 85027; 90471; 90662; 90670; 93005; 93306; 93880; 96361; 96374; 96375; G0008; G0009; G8978-GP-CL; G8979-GP-CI; G8979-GP-CJ; G8987-GO-CL; G8988-GO-CJ; G9162-GN-CJ; G9163-GN-CI; J0360; J1650; J2270; J2405; J3480; J8610; S0028

== ENCOUNTER 2020-08-29 09:46 | Outpatient (CLI) | payer MEDICARE, OTHER | END 2020-08-29 09:47 | disposition home or self-care (01) | LOC: ULT 09:46 | PROVIDERS: ATTEND Internal Medicine Rheumatology | DX: R10.9 Unspecified abdominal pain (principal); N28.1 Cyst of kidney, acquired | CPT/HCPCS: 93975 ==

== ENCOUNTER 2021-09-13 18:46 | Inpatient (IN) | payer MEDICARE ==
[2021-09-13 20:16] LABS: Hemoglobin 13.3 g/dL (12.0-16.0); Mean Corpuscular HGB CONC 31.9 g/dL (32.0-36.0); Mean Corpuscular Hemoglobin 27.3 pg (27.0-31.0); Mean Corpuscular Volume 85.5 fL (78.0-98.0); Platelet Count 203 thou/uL (130-400); RBC Distribution Width 14.4 % (11.5-14.5); Red Blood Cell (RBC) Count 4.87 mill/uL (4.20-5.40); White Blood Cell (WBC) Count 2.9 thou/uL (4.8-10.8)
[2021-09-13 20:34] LABS: ALT (SGPT) 47 U/L (8-55); AST (SGOT) 57 U/L (5-34); Albumin 3.2 g/dL (3.4-4.8); Alkaline Phosphatase 76 U/L (40-110); Anion Gap 13 mmol/L (10-20); BUN (Urea Nitrogen) 27 mg/dL (9.8-20.1); Bilirubin, Total 0.6 mg/dL (0.2-1.2); Calc. Creatinine Clearance 0 mL/min (70-130); Calcium 8.4 mg/dL (7.8-10.44); Carbon Dioxide 20 mmol/L (23-31); Chloride 105 mmol/L (98-107); Estimated GFR 63; Globulin 3.4 g/dL (2.4-3.5); Glucose 127 mg/dL (83-110); Lipase 70 U/L (8-78); Magnesium 2.3 mg/dL (1.6-2.6); Potassium 3.9 mmol/L (3.5-5.1); Protein, Total 6.6 g/dL (5.8-8.1); Sodium 134 mmol/L (136-145)
[2021-09-13 20:38] LABS: Lymphocytes 26 % (21-51); MDiff Complete? YES; Monocytes 13 % (0-10); Neutrophil 61 % (42-75); Platelet Morphology Comment Appears Adequate; RBC Morphology Normal
[2021-09-13 20:48] LABS: CKMB 0.6 ng/mL (0-6.6)
[2021-09-13] MEDS ORDERED: cefTRIAXone\\ROCEPHIN 1 GM VIAL ONE (21:25)
[2021-09-13 21:38] LABS: SARS-CoV-2 NAA Rapid Test Not Detected (NotDetected)
[2021-09-13 22:08] LABS: Bacteria/HPF None Seen HPF (None Seen); Bilirubin Negative (Negative); Blood, Urine Trace (Negative); Clarity Clear (Clear); Glucose, Urine (Dipstick) Normal (Negative); Ketone, Urine Negative (Negative); Leukocyte 25 Leu/uL (Negative); Mucous/LPF Rare LPF (<2+); Nitrite Negative (Negative); Protein, Urine (Dipstick) 20 mg/dL (Neg-Trace); RBC/HPF 0-3 HPF (0-3); Specific Gravity, Urine 1.029 (1.002-1.036); Squamous Epithelial 0-3 HPF (0-3); Urobilinogen Normal mg/dL (Less than 2); WBC/HPF 0-3 HPF (0-3); pH, Urine 5.5 (5.0-9.0)
[2021-09-13] MEDS ORDERED: Fentanyl 100 MCG/2 ML VIAL ONE (22:27)
[2021-09-13] MEDS ORDERED: PROPOFOL 20 ML ONE (22:27)
[2021-09-13] MEDS ORDERED: Ondansetron PF 4 MG/2 ML Vial IVP PRN (22:57)
[2021-09-13] MEDS ORDERED: Acetaminophen 325 MG TAB PO PRN (22:57)
[2021-09-13] MEDS ORDERED: Cefepime 1 GM in Sodium Chloride 0.9% 100 ML IVPB SCH (23:45)
[2021-09-13] MEDS ORDERED: Sodium Chloride 0.9% 1,000 ML IV SCH (23:45)
[2021-09-13] MEDS ORDERED: Cefepime 2 GM VIAL ONE (23:52)
[2021-09-13] MEDS ORDERED: Vancomycin 1 GM/200 ML BAG ONE (23:52)
[2021-09-14 01:19] LABS: Amphetamine Not Detected (NotDetected); Barbiturates Screen Not Detected (NotDetected); Benzodiazepine Screen Not Detected (NotDetected); Cocaine Metabolite Screen Not Detected (NotDetected); Methadone Not Detected (NotDetected); Methamphetamine Not Detected (NotDetected); Opiate Screen Not Detected (NotDetected); Oxycodone Screen Detected (NotDetected); Phencyclidine (PCP) Not Detected (NotDetected); THC/Cannabinoid Screen Not Detected (NotDetected); Tricyclic Screen Not Detected (NotDetected)
[2021-09-14 01:47] LABS: Troponin I 0.034 ng/mL (< 0.028)
[2021-09-14 02:35] VITALS: BMI 28.3
[2021-09-14] MEDS: Ampicillin 2 GM in Sodium Chloride 0.9% 100 ML IVPB SCH ×5 (03:07→20:52)
[2021-09-14 05:34] LABS: Anion Gap 9 mmol/L (10-20); BUN (Urea Nitrogen) 26 mg/dL (9.8-20.1); Calc. Creatinine Clearance 73 mL/min (70-130); Calcium 7.3 mg/dL (7.8-10.44); Carbon Dioxide 20 mmol/L (23-31); Chloride 111 mmol/L (98-107); Estimated GFR 87; Glucose 112 mg/dL (83-110); Potassium 3.5 mmol/L (3.5-5.1); Sodium 136 mmol/L (136-145)
[2021-09-14 05:38] LABS: Troponin I 0.034 ng/mL (< 0.028)
[2021-09-14 05:40] LABS: Hemoglobin 10.9 g/dL (12.0-16.0); Hypochromia SLIGHT = 6-15 cells (100X) (0-5/hpf); Lymphocytes 24 % (21-51); MDiff Complete? YES; Mean Corpuscular HGB CONC 31.9 g/dL (32.0-36.0); Mean Corpuscular Hemoglobin 27.9 pg (27.0-31.0); Mean Corpuscular Volume 87.3 fL (78.0-98.0); Mean Platelet Volume 7.9 fL (7.4-10.4); Monocytes 8 % (0-10); Neutrophil 64 % (42-75); Platelet Count 145 thou/uL (130-400); Platelet Morphology Comment Appears Adequate; RBC Distribution Width 14.2 % (11.5-14.5); Reactive Lymphocytes 4 % (0-10); White Blood Cell (WBC) Count 1.6 thou/uL (4.8-10.8)
[2021-09-14] MEDS ORDERED: Acetaminophen 650 MG Suppository PR PRN (06:09)
[2021-09-14] MEDS ORDERED: Cefepime 1 GM in Sodium Chloride 0.9% 100 ML IVPB SCH (09:00)
[2021-09-14] MEDS: Cefepime 2 GM in Sodium Chloride 0.9% 100 ML IVPB SCH (11:12)
[2021-09-14] MEDS: Enoxaparin Sodium 40 MG/0.4 ML SYRINGE SC SCH (11:12)
[2021-09-14] MEDS: VANCOMYCIN 1.25 GM/250 ML BAG 1.25 GM in Premix Bag 1 BAG IVPB SCH (20:52)
[2021-09-15] MEDS: Cefepime 2 GM in Sodium Chloride 0.9% 100 ML IVPB SCH ×2 (00:47→11:45)
[2021-09-15] MEDS: Ampicillin 2 GM in Sodium Chloride 0.9% 100 ML IVPB SCH ×6 (01:33→21:26)
[2021-09-15 05:40] LABS: ALT (SGPT) 37 U/L (8-55); AST (SGOT) 35 U/L (5-34); Albumin 2.8 g/dL (3.4-4.8); Alkaline Phosphatase 74 U/L (40-110); Anion Gap 13 mmol/L (10-20); BUN (Urea Nitrogen) 22 mg/dL (9.8-20.1); Bilirubin, Total 0.5 mg/dL (0.2-1.2); Calc. Creatinine Clearance 83 mL/min (70-130); Calcium 7.9 mg/dL (7.8-10.44); Carbon Dioxide 17 mmol/L (23-31); Chloride 112 mmol/L (98-107); Estimated GFR 90; Globulin 2.9 g/dL (2.4-3.5); Glucose 91 mg/dL (83-110); Potassium 3.8 mmol/L (3.5-5.1); Protein, Total 5.7 g/dL (5.8-8.1); Sodium 138 mmol/L (136-145)
[2021-09-15 05:59] LABS: Band 2 % (5-11); Eosinophils 4 % (0-10); Hemoglobin 12.2 g/dL (12.0-16.0); Lymphocytes 18 % (21-51); MDiff Complete? YES; Mean Corpuscular HGB CONC 32.3 g/dL (32.0-36.0); Mean Corpuscular Hemoglobin 27.9 pg (27.0-31.0); Mean Corpuscular Volume 86.6 fL (78.0-98.0); Mean Platelet Volume 8.3 fL (7.4-10.4); Monocytes 16 % (0-10); Neutrophil 58 % (42-75); Platelet Count 158 thou/uL (130-400); Platelet Morphology Comment Appears Adequate; RBC Distribution Width 14.3 % (11.5-14.5); RBC Morphology Normal; Red Blood Cell (RBC) Count 4.38 mill/uL (4.20-5.40); White Blood Cell (WBC) Count 1.4 thou/uL (4.8-10.8)
[2021-09-15] MEDS ORDERED: Polyethylene Glycol 3350 17 GM Packet PO PRN (07:15)
[2021-09-15 08:14] LABS: Hemoglobin A1c 5.4 % (4.0-6.0)
[2021-09-15] MEDS ORDERED: Senokot S 8.6-50 MG TAB PO SCH (09:00)
[2021-09-15] MEDS ORDERED: Non-Formulary Item 1 EACH (Sertraline Hcl [Sertraline Hcl] 50 MG Tablet) PO SCH (09:00)
[2021-09-15] MEDS: Folic Acid 1 MG TAB PO SCH (10:29)
[2021-09-15] MEDS: Senokot S 8.6-50 MG TAB PO SCH (10:29)
[2021-09-15] MEDS: Enoxaparin Sodium 40 MG/0.4 ML SYRINGE SC SCH (10:29)
[2021-09-15 10:57] LABS: CSF, Glucose 56 mg/dl (40-70); CSF, Protein 69 mg/dL (15-40)
[2021-09-15 13:26] LABS: CSF Source CSF; Clarity Hazy (Clear); Tube # 4
[2021-09-15 20:06] LABS: Vancomycin, Trough 9.1 ug/mL
[2021-09-15] MEDS: Acetaminophen 325 MG TAB PO PRN (21:25)
[2021-09-15] MEDS: Atorvastatin Calcium 20 MG TAB PO SCH (21:26)
[2021-09-15] MEDS: Vancomycin HCl 750 MG in Sodium Chloride 0.9% 250 ML 250 ML IVPB SCH (22:05)
[2021-09-16] MEDS: Cefepime 2 GM in Sodium Chloride 0.9% 100 ML IVPB SCH ×2 (00:25→12:04)
[2021-09-16] MEDS: VANCOMYCIN 1.25 GM/250 ML BAG 1.25 GM in Premix Bag 1 BAG IVPB SCH (00:28)
[2021-09-16] MEDS: Ampicillin 2 GM in Sodium Chloride 0.9% 100 ML IVPB SCH ×5 (01:04→16:15)
[2021-09-16 05:15] LABS: #Eosinphils 0.1 thou/uL (0.0-0.7); #Lymphocytes 0.4 thou/uL (1.20-3.40); #Monocytes 0.2 thou/uL (0.11-0.59); #Neutrophils 0.7 thou/uL (1.40-6.50); %Basophils 0.5 % (0.0-1.0); %Eosinophils 7.2 % (0.0-10.0); %Lymphocytes 29.7 % (21.0-51.0); %Monocytes 13.3 % (0.0-10.0); %Neutrophils 49.3 % (42.0-75.0); Hemoglobin 11.1 g/dL (12.0-16.0); Mean Corpuscular HGB CONC 32.5 g/dL (32.0-36.0); Mean Corpuscular Hemoglobin 27.7 pg (27.0-31.0); Mean Corpuscular Volume 85.4 fL (78.0-98.0); Mean Platelet Volume 8.1 fL (7.4-10.4); Platelet Count 157 thou/uL (130-400); RBC Distribution Width 14.2 % (11.5-14.5); Red Blood Cell (RBC) Count 4.02 mill/uL (4.20-5.40); White Blood Cell (WBC) Count 1.5 thou/uL (4.8-10.8)
[2021-09-16 05:27] LABS: Anion Gap 13 mmol/L (10-20); BUN (Urea Nitrogen) 20 mg/dL (9.8-20.1); Calc. Creatinine Clearance 86 mL/min (70-130); Calcium 7.9 mg/dL (7.8-10.44); Carbon Dioxide 18 mmol/L (23-31); Cardiac Risk 6.1 (Less than 4.5); Chloride 111 mmol/L (98-107); Cholesterol 91 mg/dl (< 200 Desired); Estimated GFR 91; Glucose 93 mg/dL (83-110); HDL Cholesterol 15 mg/dL (>60 Neg Risk); LDL Cholesterol, Calculated 57 mg/dL; Magnesium 2.2 mg/dL (1.6-2.6); Potassium 3.3 mmol/L (3.5-5.1); Sodium 139 mmol/L (136-145); Triglycerides 95 mg/dL (Less than 150)
[2021-09-16 05:31] LABS: ALT (SGPT) 25 U/L (8-55); AST (SGOT) 22 U/L (5-34); Albumin 2.6 g/dL (3.4-4.8); Alkaline Phosphatase 71 U/L (40-110); Bilirubin, Direct 0.2 mg/dL (0.1-0.3); Bilirubin, Total 0.4 mg/dL (0.2-1.2); CRP (Inflammatory) 1.39 mg/dL (= or < 0.5)
[2021-09-16] MEDS ORDERED: Potassium Chloride 20 MEQ TAB PO SCH (07:00)
[2021-09-16] MEDS: Folic Acid 1 MG TAB PO SCH (09:43)
[2021-09-16] MEDS: Enoxaparin Sodium 40 MG/0.4 ML SYRINGE SC SCH (09:43)
[2021-09-16] MEDS: Senokot S 8.6-50 MG TAB PO SCH (09:43)
[2021-09-16] MEDS: Aspirin 81 mg Enteric Coated Tablet PO SCH (09:43)
[2021-09-16] MEDS: Vancomycin HCl 750 MG in Sodium Chloride 0.9% 250 ML 250 ML IVPB SCH (09:43)
[2021-09-16] MEDS: Fluticasone Propionate Nasal Spray 16 gm Bottle NASAL SCH (09:44)
[2021-09-16] MEDS: Atorvastatin Calcium 20 MG TAB PO SCH (20:29)
[2021-09-16] MEDS: Acetaminophen 325 MG TAB PO PRN (21:13)
[2021-09-17 05:35] LABS: Anion Gap 13 mmol/L (10-20); BUN (Urea Nitrogen) 15 mg/dL (9.8-20.1); Calc. Creatinine Clearance 84 mL/min (70-130); Carbon Dioxide 19 mmol/L (23-31); Chloride 110 mmol/L (98-107); Estimated GFR 90; Glucose 85 mg/dL (83-110); Potassium 3.3 mmol/L (3.5-5.1); Sodium 139 mmol/L (136-145)
[2021-09-17 06:01] LABS: Band 12 % (5-11); Hemoglobin 10.9 g/dL (12.0-16.0); Hypochromia SLIGHT = 6-15 cells (100X) (0-5/hpf); Lymphocytes 12 % (21-51); MDiff Complete? YES; Mean Corpuscular HGB CONC 32.1 g/dL (32.0-36.0); Mean Corpuscular Hemoglobin 27.3 pg (27.0-31.0); Mean Corpuscular Volume 85.2 fL (78.0-98.0); Mean Platelet Volume 7.7 fL (7.4-10.4); Monocytes 8 % (0-10); Neutrophil 68 % (42-75); Platelet Count 182 thou/uL (130-400); Platelet Morphology Comment Appears Adequate; RBC Distribution Width 14.2 % (11.5-14.5); Red Blood Cell (RBC) Count 3.97 mill/uL (4.20-5.40); White Blood Cell (WBC) Count 1.5 thou/uL (4.8-10.8)
[2021-09-17] MEDS ORDERED: Potassium Chloride 20 MEQ TAB PO SCH (07:15)
[2021-09-17] MEDS ORDERED: Magnesium 2 GM/50 ML(in water) 2 GM in Premix Bag 1 BAG IVPB SCH (07:15)
[2021-09-17] MEDS: Aspirin 81 mg Enteric Coated Tablet PO SCH (08:58)
[2021-09-17] MEDS: Folic Acid 1 MG TAB PO SCH (08:58)
[2021-09-17] MEDS: Enoxaparin Sodium 40 MG/0.4 ML SYRINGE SC SCH (08:59)
[2021-09-17] MEDS: Senokot S 8.6-50 MG TAB PO SCH (08:59)
[2021-09-17] MEDS: Fluticasone Propionate Nasal Spray 16 gm Bottle NASAL SCH (09:13)
[2021-09-17] MEDS ORDERED: Losartan 25 MG TAB PO SCH (14:45)
[2021-09-17] MEDS: Atorvastatin Calcium 20 MG TAB PO SCH (20:13)
[2021-09-17] MEDS: Acetaminophen 325 MG TAB PO PRN (20:13)
[2021-09-18 05:46] LABS: Anion Gap 16 mmol/L (10-20); BUN (Urea Nitrogen) 9 mg/dL (9.8-20.1); Calc. Creatinine Clearance 87 mL/min (70-130); Carbon Dioxide 16 mmol/L (23-31); Chloride 111 mmol/L (98-107); Estimated GFR 91; Glucose 82 mg/dL (83-110); Magnesium 2.2 mg/dL (1.6-2.6); Potassium 3.9 mmol/L (3.5-5.1); Sodium 139 mmol/L (136-145)
[2021-09-18 05:49] LABS: Band 5 % (5-11); Eosinophils 6 % (0-10); Hemoglobin 11.6 g/dL (12.0-16.0); Lymphocytes 45 % (21-51); MDiff Complete? YES; Mean Corpuscular HGB CONC 32.3 g/dL (32.0-36.0); Mean Corpuscular Hemoglobin 27.6 pg (27.0-31.0); Mean Corpuscular Volume 85.4 fL (78.0-98.0); Mean Platelet Volume 7.3 fL (7.4-10.4); Monocytes 9 % (0-10); Neutrophil 35 % (42-75); Platelet Count 175 thou/uL (130-400); RBC Distribution Width 14.5 % (11.5-14.5); White Blood Cell (WBC) Count 1.8 thou/uL (4.8-10.8)
[2021-09-18] MEDS ORDERED: Losartan 25 MG TAB PO SCH (09:00)
[2021-09-18] MEDS: Enoxaparin Sodium 40 MG/0.4 ML SYRINGE SC SCH (09:50)
[2021-09-18] MEDS: Aspirin 81 mg Enteric Coated Tablet PO SCH (09:50)
[2021-09-18] MEDS: Folic Acid 1 MG TAB PO SCH (09:50)
[2021-09-18] MEDS: Senokot S 8.6-50 MG TAB PO SCH (09:51)
[2021-09-18] MEDS: Acetaminophen 325 MG TAB PO PRN (09:53)
[2021-09-18] MEDS: Fluticasone Propionate Nasal Spray 16 gm Bottle NASAL SCH (09:56)
[2021-09-18 15:46] VITALS: TEMP 97.7
[2021-09-18 17:34] VITALS: BP 163/85
== END 2021-09-18 17:53 | disposition home or self-care (01) | DRG 70 ==
LOC: ERS 18:46 → NEURO 23:01 → OBSVTOIN 09-14 04:15
PROVIDERS: ADMIT Internal Medicine; ATTEND Family Medicine
PROC: 00JU3ZZ Inspection of Spinal Canal, Percutaneous Approach (ICD-10-PCS; principal; 2021-09-14)
PROC: 009U3ZX Drainage of Spinal Canal, Percutaneous Approach, Diagnostic (ICD-10-PCS; 2021-09-15)
PROC: B01B1ZZ Fluoroscopy of Spinal Cord using Low Osmolar Contrast (ICD-10-PCS; 2021-09-15)
DX: G93.41 Metabolic encephalopathy (principal); S72.91XA Unspecified fracture of right femur, initial encounter for closed fracture; S52.201A Unspecified fracture of shaft of right ulna, initial encounter for closed fracture; I10 Essential (primary) hypertension; E78.5 Hyperlipidemia, unspecified; M06.9 Rheumatoid arthritis, unspecified; Z20.822 Contact with and (suspected) exposure to COVID-19; Z96.641 Presence of right artificial hip joint; R13.10 Dysphagia, unspecified; Z66 Do not resuscitate; F01.50 Vascular dementia, unspecified severity, without behavioral disturbance, psychotic disturbance, mood disturbance, and anxiety; W19.XXXA Unspecified fall, initial encounter; Z79.82 Long term (current) use of aspirin; Z79.899 Other long term (current) drug therapy; I69.328 Other speech and language deficits following cerebral infarction
CPT/HCPCS: 36415; 36416; 51701; 62270; 70450; 71045; 80048; 80053; 80061; 80076; 80202; 80306; 81001; 81003; 81015; 82553; 82945; 83036; 83605; 83690; 83735; 84157; 84443; 84484; 85025; 85027; 85652; 86140; 87040; 87070; 87086; 87205; 89051; 93005; 96365; 96375; 99152; 99153; G0378; J0290; J0692; J0696; J1650; J2704; J3010; J3370; J3475; J3490; J7050; U0002